=== PATIENT | male | born 1990 | race Caucasian/White ===

== ENCOUNTER 2018-10-26 06:23 | Emergency (ER) | payer MEDICAID ==
[~2018-10-26] VITALS: Ht 188 cm; Wt 80.5 kg
[2018-10-26] MEDS ORDERED: SEROQUEL (06:34)
[2018-10-26] MEDS ORDERED: INVEGA SUSTENNA (06:34)
[2018-10-26] MEDS ORDERED: WELLBUTRIN (06:34)
--- NOTE | 2018-10-26 07:02 | NUR ---
REPORT GIVEN TO MARYBEL BRANHAM
[2018-10-26] MEDS ORDERED: ALBU0.63 NEB (07:08)
[2018-10-26 07:35] LABS: BASOPHILS # (AUTO) 0.04 x10^3/uL (0-0.1); BASOPHILS % (AUTO) 0 % (0-1); EOSINOPHILS # (AUTO) 0.23 x10^3/uL (0-0.4); EOSINOPHILS % (AUTO) 2 % (1-7); LYMPHOCYTES # (AUTO) 2.22 x10^3/uL (1-3.4); LYMPHOCYTES % (AUTO) 23 % (22-44); MD NO; MEAN CORPUSCULAR HEMOGLOBIN 32.7 pg (27.5-34.5); MEAN PLATELET VOLUME 6.8 fL (7.4-10.4); MONOCYTES # (AUTO) 0.54 x10^3/uL (0.2-0.8); MONOCYTES % (AUTO) 6 % (2-9); NEUTROPHILS # (AUTO) 6.74 x10^3/uL (1.8-6.8); NEUTROPHILS % (AUTO) 69 % (42-75); PLATELET COUNT 368 x10^3/uL (130-400); RED BLOOD COUNT 4.76 x10^6/uL (4.38-5.82); RED CELL DISTRIBUTION WIDTH 13.2 % (9.4-14.8)
[2018-10-26 07:44] LABS: ALBUMIN 4.2 g/dL (3.4-5.0); ANION GAP 5 mmol/L (5-15); CALCIUM 8.7 mg/dL (8.5-10.1); CHLORIDE 109 mmol/L (98-107)
[2018-10-26 07:48] LABS: CREATININE 0.79 mg/dL (0.7-1.3)
[2018-10-26 07:52] LABS: ACETAMINOPHEN < 2 mcg/mL (10-30); SALICYLATE LEVEL < 1.7 mg/dL (2.8-20.0)
--- NOTE | 2018-10-26 08:53 | NUR ---
PT UNABLE TO PROVIDE URINE SAMPLE AT THIS TIME, PT UNCOORDINATED AND MISSED URINAL. DISCUSSED WITH BROCK NAYLOR. NO NEW ORDERS AT THIS TIME. PT PROVIDED WITH MEAL TRAY AND WATER, PT ATE APPROX 100 OF FOOD. NO ACUTE S/S OF DISTRESS
[2018-10-26 10:25] VITALS: BP 127/68
--- NOTE | 2018-10-26 12:16 | NUR ---
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 PT WALKING AROUND WITH STEADY GAIT AND REQUESTED TAXI TO RECORD ST. TAXI VOUCHER GIVEN.
== END 2018-10-26 12:19 | disposition home or self-care (01) ==
LOC: ED 09:06
DX: F10.220 Alcohol dependence with intoxication, uncomplicated (principal); F41.9 Anxiety disorder, unspecified; F31.9 Bipolar disorder, unspecified; F20.9 Schizophrenia, unspecified; Z79.899 Other long term (current) drug therapy; Z88.8 Allergy status to other drugs, medicaments and biological substances; Z86.59 Personal history of other mental and behavioral disorders; Y90.9 Presence of alcohol in blood, level not specified
CPT/HCPCS: 36415; 80048; 80307; 80329; 82040; 85025; 99283; G0480

== ENCOUNTER 2018-10-26 17:25 | Emergency (ER) | payer MEDICAID ==
[~2018-10-26] VITALS: Ht 177.8 cm; Wt 86.5 kg
[~2018-10-26 17:25] MED LIST: ALBU0.63 NEB; INVEGA SUSTENNA; SEROQUEL; WELLBUTRIN
[2018-10-26 17:34] VITALS: BP 120/74
--- NOTE | 2018-10-26 19:03 | NUR ---
PT BEDSIDE REPORT FROM DANIA NO. THIS RN TO ASSUME CARE OF PT. PT IN SHOWER AT THIS TIME W/ TECH AT DOOR.
--- NOTE | 2018-10-26 19:03 | NUR ---
PT BEDSIDE REPORT FROM DANIA NO. THIS RN TO ASSUME CARE OF PT. PT ON ALL MONITORING W/ MOTHER AT BEDSIDE. SITTER IN HALLWAY.
[2018-10-26] MEDS ORDERED: BACITRACIN ZINC OINT 500U/GM, 0.9 GM ONE (19:53)
--- NOTE | 2018-10-26 20:45 | NUR ---
THIS RN TO CHECK ON PT. ALL BELONGINGS GONE AND IV CATHETER OUT ON BED. PT ELOPED AT THIS TIME. AWARE.
== END 2018-10-26 20:47 | disposition left against medical advice (07) ==
LOC: ED 18:08
DX: F10.229 Alcohol dependence with intoxication, unspecified (principal); M25.551 Pain in right hip; F20.9 Schizophrenia, unspecified; F31.9 Bipolar disorder, unspecified; F43.10 Post-traumatic stress disorder, unspecified; Y90.9 Presence of alcohol in blood, level not specified
CPT/HCPCS: 99283

== ENCOUNTER 2018-10-27 13:45 | Emergency (ER) | payer MEDICAID ==
[~2018-10-27] VITALS: Ht 182.9 cm; Wt 80.5 kg
[2018-10-27 14:06] VITALS: BP 139/77
[2018-10-27] MEDS ORDERED: hydrOXyzine 50MG TABLET ONE (14:56)
[2018-10-27] MEDS ORDERED: hydrOXYzine 50 MG/ML IM PRN (15:00)
--- NOTE | 2018-10-27 15:04 | NUR ---
PT MEDCIATED PER MAR
== END 2018-10-27 15:10 | disposition home or self-care (01) ==
LOC: ED 15:00
DX: F41.1 Generalized anxiety disorder (principal)
CPT/HCPCS: 93005; 99284; Q0177